=== PATIENT | female | born 1955 | race Caucasian/White ===

== ENCOUNTER 2021-12-13 13:25 | Outpatient (CLI) | payer OTHER ==
[2021-12-13] MEDS ORDERED: GADOBUTROL 10 MMOL/10 ML VIAL ONE (13:47)
--- NOTE | 2021-12-13 15:58 | MRI Report ---
PROCEDURE: Brain W/WO INDICATIONS: TREMOR CONTRAST: IV CONTRAST: Gadavist ml: 8.5 TECHNIQUE: Noncontrast axial T1 spin echo, axial T2 fast spin echo, sagittal and axial FLAIR, coronal T2 fast sp in echo, axial gradient echo, axial diffusion and ADC through the brain. After the administration of contrast, axial and coronal T1 spin echo with fat saturation through the brain. COMPARISON: None. FINDINGS: Image quality: Excellent. CSF spaces: Basal cisterns are patent. No extra-axial fluid collections. Ventricles are normal in size and shape. Brain: No midline shift. No intracranial bleeds or masses. No abnormal intracranial enhancement. There is mild cerebral volume loss for age. Moderate chronic microvascular ischemic change is noted. The brainstem appears normal. Diffusion-weighted images demonstrate no acute ischemic insults. No c hronic ischemic insults. Normal intravascular flow voids are present. Skull and face: Calvarial marrow is normal in signal. Orbits appear normal. Sinuses: Sinuses and mastoids appear clear. IMPRESSION: No acute intracranial abnormality. Mild global cerebral volume loss. Moderate chronic microvascular ischemic changes. Reviewed by: Juancarlos Mckeon MD on 12/13/2021 3:57 PM PDT Approved by: Juancarlos Mckeon MD on 12/13/2021 3:57 PM PDT Station ID: [id number]
[2021-12-13] MEDS ORDERED: GADOBUTROL 10 MMOL/10 ML VIAL IVP ONE (16:31)
== END 2021-12-13 13:26 | disposition home or self-care (01) ==
LOC: DI 13:25
PROVIDERS: ATTEND Nurse Practitioner Family
DX: R25.1 Tremor, unspecified (principal); G31.89 Other specified degenerative diseases of nervous system; I67.82 Cerebral ischemia
CPT/HCPCS: 70553; A9585